=== PATIENT | male | born 1980 | race African-American/Black ===

== ENCOUNTER 2018-02-11 20:05 | Emergency (ER) | payer BC, OTHER ==
[~2018-02-11] VITALS: Ht 170.2 cm; Wt 97.5 kg
[2018-02-11 20:15] VITALS: BP 141/99
[2018-02-11] MEDS ORDERED: VENTOLIN HFA 1818 GM (20:18)
[2018-02-11] MEDS ORDERED: CORTIZONE-10 PL28 GM TOP (20:39)
[2018-02-11] MEDS ORDERED: PREDNISONE 20 M20 M1 PO (20:39)
== END 2018-02-11 20:55 | disposition home or self-care (01) ==
LOC: ER 20:05
DX: L25.9 Unspecified contact dermatitis, unspecified cause (principal); J45.909 Unspecified asthma, uncomplicated